=== PATIENT | male | born 1990 | race Caucasian/White ===

== ENCOUNTER 2024-10-01 23:34 | Emergency (ER) | payer SELFPAY ==
[2024-10-01] MEDS ORDERED: TDAP (DIPHTH,PERTUSS(ACELL),TET VAC) 0.5 ML VIAL IMVAC ONE (23:49)
[2024-10-01] MEDS ORDERED: LIDOCAINE 2% W/EPI 1:200,000 MPF 20 ML VIAL IM ONE (23:51)
[2024-10-01] MEDS ORDERED: NA CHLORIDE 0.9% 1,000 ML ONE (23:54)
[2024-10-02 00:56] LABS: Anion Gap 13.3 mEq/L (5.0-15.0); Potassium 3.3 mEq/L (3.5-5.1)
[2024-10-02 01:11] LABS: Absolute Eosinophils 0.2 K/uL (0-0.5); Absolute Lymphocytes (CBC) 2.2 K/uL (0.7-4.9); Absolute Monocytes 0.8 K/uL (0.1-1.3); Basophils % 0.1 % (0-1.3); Eosinophils % 2.3 % (0-4.4); Hematocrit 42.7 % (39.6-49.0); Hemoglobin 14.9 g/dL (13.6-17.9); Lymphocytes % 26.8 % (15.3-44.8); MCH 30.3 pg (27.0-35.0); MCHC 34.9 g/dL (32.0-36.0); MCV 86.9 fL (80-100); Monocytes % 9.6 % (3.3-12.3); Neutrophils % 61.2 % (41.7-73.7); Platelets 274 thou/uL (152-406); RBC Red Blood Cell Count 4.91 M/uL (4.33-5.43); Red Cell Distribution Width 13.3 % (12.1-15.2)
[2024-10-02 01:28] LABS: PT Prothrombin Time 10.5 SECONDS (10-13.0); PTT, Activated Partial Thromb 31.5 SECONDS (27.2-37.4); Protime INR 0.92
[2024-10-02] MEDS ORDERED: POTASSIUM 25 MEQ EFFERV TAB ONE (01:43)
[2024-10-02] MEDS ORDERED: CEPHALEXIN 250 MG CAP ONE (01:43)
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
[2024-10-02 02:15] VITALS: TEMP 98.3; O2SAT 97
[2024-10-02 02:16] VITALS: BP 126/77
== END 2024-10-02 02:07 | disposition home or self-care (01) ==
LOC: ER 23:34
DX: S61.511A Laceration without foreign body of right wrist, initial encounter (principal); W25.XXXA Contact with sharp glass, initial encounter
CPT/HCPCS: 36415; 80048; 85025; 85610; 85730; 86850; 86900; 86901; 90715; 96360; 96361; 96372; 99284; J7030